=== PATIENT | female | born 1950 | race Hispanic/Latino ===

== ENCOUNTER 2020-03-05 23:53 | Emergency (ER) | payer MEDICARE, OTHER ==
[~2020-03-05] VITALS: Ht 160 cm; Wt 65.8 kg
[2020-03-06] MEDS ORDERED: HYDROCODONE/APAP 5MG-325MG TAB PO ONE (00:15)
[2020-03-06] MEDS ORDERED: ULTRAM50 MG PO (00:23)
[2020-03-06] MEDS ORDERED: HYDROCODONE/APAP 5MG-325MG TAB ONE (00:30)
== END 2020-03-06 00:37 | disposition home or self-care (01) ==
LOC: FSED 03-06 00:13
DX: M25.531 Pain in right wrist (principal); G56.01 Carpal tunnel syndrome, right upper limb
CPT/HCPCS: 99282

== ENCOUNTER 2021-01-15 01:43 | Emergency (ER) | payer MEDICARE ==
[~2021-01-15] VITALS: Ht 162.6 cm; Wt 72.6 kg
[~2021-01-15 01:43] MED LIST: ULTRAM50 MG PO
[2021-01-15] MEDS ORDERED: HYDROCODONE/APAP 5MG-325MG TAB PO ONE (02:00)
[2021-01-15] MEDS ORDERED: CYCLOBENZAPRINE HCL 10 MG TAB PO ONE (02:00)
[2021-01-15] MEDS ORDERED: CYCLOBENZAPRINE HCL 10 MG TAB ONE (02:12)
[2021-01-15] MEDS ORDERED: HYDROCODONE/APAP 5MG-325MG TAB ONE (02:13)
[2021-01-15] MEDS ORDERED: PREDNISONE20 MG PO (02:28)
[2021-01-15 03:25] VITALS: BP 160/54
== END 2021-01-15 03:25 | disposition home or self-care (01) ==
LOC: FSED 01:50
DX: M54.16 Radiculopathy, lumbar region (principal); I10 Essential (primary) hypertension; E11.9 Type 2 diabetes mellitus without complications; Z88.8 Allergy status to other drugs, medicaments and biological substances
CPT/HCPCS: 72100; 99283

== ENCOUNTER → 2021-03-11 | Outpatient (CLI) | payer MEDICARE ==
[~2021-03-11] MED LIST changes: +PREDNISONE20 MG PO
== END ==
LOC: RAD 13:52
PROVIDERS: ATTEND Family Medicine
DX: M25.561 Pain in right knee (principal); M17.11 Unilateral primary osteoarthritis, right knee

== ENCOUNTER → 2021-07-23 | Outpatient (CLI) | payer MEDICARE | LOC: RAD 15:58 | PROVIDERS: ATTEND Family Medicine | DX: M25.511 Pain in right shoulder (principal) ==

== ENCOUNTER 2023-01-15 09:59 | Outpatient (RCR) | payer MEDICARE | END 2023-01-20 | LOC: PT 09:59 | PROVIDERS: ATTEND Physician Assistant | DX: M17.0 Bilateral primary osteoarthritis of knee (principal) ==

== ENCOUNTER 2023-05-31 15:27 | Emergency (ER) | payer MEDICARE ==
[~2023-05-31] VITALS: Ht 162.6 cm; Wt 72.6 kg
[2023-05-31 15:37] VITALS: O2SAT 100
[2023-05-31] MEDS ORDERED: PAXLOVID 300-11 EAC1 PO (16:29)
== END 2023-05-31 16:39 | disposition home or self-care (01) ==
LOC: FSED 15:37
DX: R05.9 Cough, unspecified (principal); U07.1 COVID-19; I10 Essential (primary) hypertension; E11.9 Type 2 diabetes mellitus without complications; E78.00 Pure hypercholesterolemia, unspecified
CPT/HCPCS: 99283

== ENCOUNTER 2024-02-11 12:09 | Emergency (ER) | payer MEDICARE ==
[~2024-02-11] VITALS: Ht 152.4 cm; Wt 72.7 kg
[~2024-02-11 12:09] MED LIST changes: +PAXLOVID 300-11 EAC1 PO
[2024-02-11] MEDS ORDERED: METFORMIN HCL500 M2 PO (12:29)
[2024-02-11] MEDS ORDERED: AMLODIPINE BESY10 MG PO (12:29)
[2024-02-11] MEDS ORDERED: LISINOPRIL5 MG PO (12:29)
[2024-02-11] MEDS ORDERED: ROSUVASTATIN CA20 MG (12:29)
[2024-02-11] MEDS: ACETAMINOPHEN 325 MG TAB PO ONE (13:31)
[2024-02-11] MEDS ORDERED: LIDOCAINE1 EACH TOP (14:58)
[2024-02-11 15:17] VITALS: PULSE 74; RESP 16; TEMP 97.1; O2SAT 98
== END 2024-02-11 15:17 | disposition home or self-care (01) ==
LOC: FSED 12:15
DX: M79.605 Pain in left leg (principal); S86.812A Strain of other muscle(s) and tendon(s) at lower leg level, left leg, initial encounter; M76.812 Anterior tibial syndrome, left leg; M19.09 Primary osteoarthritis, other specified site; E11.42 Type 2 diabetes mellitus with diabetic polyneuropathy; I10 Essential (primary) hypertension; E78.5 Hyperlipidemia, unspecified
CPT/HCPCS: 99283

== ENCOUNTER 2024-03-29 11:27 | Emergency (ER) | payer MEDICARE ==
[~2024-03-29] VITALS: Ht 162.6 cm; Wt 72.6 kg
[~2024-03-29 11:27] MED LIST changes: +AMLODIPINE BESY10 MG PO; +LIDOCAINE1 EACH TOP; +LISINOPRIL5 MG PO; +METFORMIN HCL500 M2 PO; +ROSUVASTATIN CA20 MG
[2024-03-29 11:30] VITALS: PULSE 67; RESP 15; TEMP 98.2; O2SAT 98
[2024-03-29 11:59] LABS: BASOPHILS % 0.3 % (0.0-1.0); EOSINOPHILS # (AUTO) 0.3 (0.0-0.4); EOSINOPHILS % 2.2 % (0.0-6.0); HEMATOCRIT 41.5 % (34.2-44.1); HEMOGLOBIN 13.1 g/dL (12.0-16.0); LYMPHOCYTES # (AUTO) 2.7 (1.0-3.2); LYMPHOCYTES % 21.4 % (18.0-39.1); MEAN CORPUSCULAR HEMOGLOBIN 27.8 pg (28-32); MEAN CORPUSCULAR HGB CONC 31.6 g/dL (31-35); MEAN CORPUSCULAR VOLUME 87.9 fL (81-99); MONOCYTES # (AUTO) 0.9 (0.2-0.8); NEUTROPHILS # (AUTO) 8.7 (2.1-6.9); NEUTROPHILS % 68.7 % (38.7-80.0); PLATELET COUNT 202 x10e3/uL (140-360); RED BLOOD COUNT 4.72 x10e6/uL (3.6-5.1); RED CELL DISTRIBUTION WIDTH 14.3 % (11.7-14.4); WHITE BLOOD COUNT 12.69 x10e3/uL (4.8-10.8)
[2024-03-29 12:22] LABS: ALBUMIN 3.5 g/dL (3.5-5.0); ANION GAP 13.4 mmol/L (8-16); BILIRUBIN,TOTAL 0.4 mg/dL (0.2-1.2); CALCIUM 9.7 mg/dL (8.4-10.2); CLARITY,URINE SL CLOUDY (CLEAR); COLOR,URINE YELLOW (YELLOW); CREATININE, SERUM 0.78 mg/dL (0.57-1.11); GLUCOSE, URINE NEGATIVE (NEGATIVE); KETONES,URINE NEGATIVE (NEGATIVE); LEUKOCYTE ESTERASE ,URINE TRACE (NEGATIVE); NITRITE,URINE NEGATIVE (NEGATIVE); PH,URINE 6 (5 - 7); POTASSIUM 4.4 mmol/L (3.5-5.1); PROTEIN,URINE DIPSTICK TRACE (NEGATIVE); TOTAL PROTEIN 6.9 g/dL (6.5-8.1)
[2024-03-29 12:23] LABS: BILIRUBIN,URINE NEGATIVE (NEGATIVE); URINE UROBILINOGEN 0.2 mg/dL (0.2 - 1)
[2024-03-29 12:45] LABS: BACTERIA,URINE MODERATE /HPF; EPITHELIAL CELLS,URINE MODERATE /LPF; RBC,URINE 0-5 /HPF (0-5); WBC,URINE (MAN) 0-5 /HPF (0-5)
== END 2024-03-29 13:59 | disposition home or self-care (01) ==
LOC: ER 11:34
DX: R10.31 Right lower quadrant pain (principal); E11.65 Type 2 diabetes mellitus with hyperglycemia; I10 Essential (primary) hypertension; E78.5 Hyperlipidemia, unspecified; G62.9 Polyneuropathy, unspecified; M19.09 Primary osteoarthritis, other specified site
CPT/HCPCS: 36415; 74176; 80053; 81001; 85025; 99283; 99284

== ENCOUNTER → 2024-07-20 | Outpatient (RCR) | payer MEDICARE | LOC: PT 07-18 09:40 | PROVIDERS: ATTEND Physical Medicine & Rehabilitation | DX: M16.11 Unilateral primary osteoarthritis, right hip (principal) ==

== ENCOUNTER → 2024-09-21 | Outpatient (REF) | payer MEDICARE | LOC: RAD 14:13 | PROVIDERS: ATTEND Family Medicine | DX: Z01.810 Encounter for preprocedural cardiovascular examination (principal) | CPT/HCPCS: 71046 ==

== ENCOUNTER 2024-10-11 05:22 | Observation (INO) | payer MEDICARE, OTHER ==
[~2024-10-11 05:22] MED LIST changes: +CYMBALTA20 MG PO; +FLONASE ALLERG9.9 ML INH; +GABAPENTIN300 MG PO; +JARDIANCE25 MG PO; +LEVOCETIRIZINE D5 MG PO; +MELOXICAM7.5 MG PO; +MONTELUKAST SOD10 MG PO; +TIZANIDINE HCL4 MG PO; +TRAZODONE HCL50 MG PO
[2024-10-11] MEDS: GABAPENTIN 300 MG CAP ONE (06:20)
[2024-10-11] MEDS: DEXAMETHASONE 10MG/ML PF INJ ONE (06:20)
[2024-10-11] MEDS: CEFAZOLIN SODIUM 2 GM ONE (06:21)
[2024-10-11] MEDS: LACTATED RINGER'S 1,000 ML ONE (06:22)
[2024-10-11] MEDS ORDERED: BUPIVACAINE 0.5%/EPI 30 ML SDV INJ ONE (06:55)
[2024-10-11] MEDS ORDERED: FENTANYL CITRATE/PF 100MCG/2 ML INJ ONE ×2 (06:55→07:10)
[2024-10-11] MEDS ORDERED: MIDAZOLAM HCL 2 MG/2 ML VIAL ONE (06:55)
[2024-10-11] MEDS ORDERED: LIDOCAINE HCL 2% LOCAL INJ 5 ML SDV VIAL INJ ONE (07:10)
[2024-10-11] MEDS ORDERED: PROPOFOL IV EMULSION 10 MG/ML 20 ML VIAL ONE (07:10)
[2024-10-11] MEDS ORDERED: SEVOFLURANE INHAL SOLN 250 ML PEN BTL ONE (07:10)
[2024-10-11] MEDS ORDERED: DIPHENHYDRAMINE HCL INJ 50 MG/ML VIAL ONE (07:42)
[2024-10-11] MEDS ORDERED: FAMOTIDINE 20 MG/2 ML VIAL IV ONE (07:42)
[2024-10-11] MEDS ORDERED: ONDANSETRON HCL INJ 2MG/ML 2ML 2 MG/ML VIAL ONE (07:42)
[2024-10-11] MEDS ORDERED: ACETAMINOPHEN 1000 MG/100 ML 100 ML IV ONE (07:44)
[2024-10-11] MEDS ORDERED: DEXMEDETOMIDINE HCL 0 ML ONE (07:57)
[2024-10-11] MEDS ORDERED: ROPIVACAINE/EPI/CLONIDINE/KET 50 ML SYRINGE INJ ONE (08:00)
[2024-10-11] MEDS ORDERED: DIPHENHYDRAMINE HCL INJ 50 MG/ML VIAL IV PRN (08:45)
[2024-10-11] MEDS ORDERED: ONDANSETRON HCL INJ 2MG/ML 2ML 2 MG/ML VIAL IV PRN (08:45)
[2024-10-11] MEDS: HYDROCODONE/APAP 7.5MG-325MG 1 EA TAB PO PRN (09:35)
[2024-10-11 15:00] VITALS: BP 113/85; PULSE 75; RESP 18; TEMP 97.6; O2SAT 99
[2024-10-11] MEDS: CELECOXIB 100 MG CAP PO SCH (17:22)
[2024-10-11] MEDS: ASPIRIN 325 MG TAB PO SCH (17:22)
[2024-10-11] MEDS: SODIUM CHLORIDE 0.9% 1000ML 1,000 ML IV SCH (17:24)
[2024-10-11 17:29] VITALS: BP 113/85; PULSE 75; RESP 18; TEMP 97.6; O2SAT 99
[2024-10-11] MEDS: CELECOXIB 200 MG CAP ONE (17:31)
[2024-10-11] MEDS: HYDROCODONE/APAP 7.5MG-325MG 1 EA TAB ONE (17:31)
[2024-10-11] MEDS ORDERED: INSULIN LISPRO 100 UNIT/1 ML 3ML VIAL SQ SCH (17:55)
[2024-10-11] MEDS ORDERED: DEXTROSE 50% SYRINGE 50 ML IV PRN ×2 (18:00)
[2024-10-11] MEDS: INSULIN LISPRO 100 UNIT/1 ML 3ML VIAL SQ SCH (18:06)
[2024-10-11 20:00] VITALS: BP 114/67; PULSE 78; RESP 16; TEMP 97.9; O2SAT 99
[2024-10-12 08:30] VITALS: BP 110/57; PULSE 60; RESP 16; TEMP 98.2; O2SAT 99
[2024-10-12 08:41] VITALS: BP 110/57; PULSE 60; RESP 16; TEMP 98.2; O2SAT 100
[2024-10-12] MEDS ORDERED: ACETAMINOPHEN 1000 MG/100 ML IV PRN (08:45)
[2024-10-12 11:36] VITALS: BP 140/61; PULSE 79; RESP 16; TEMP 97.8; O2SAT 98
[2024-10-12 15:46] VITALS: BP 134/58; PULSE 74; RESP 20; TEMP 98.6; O2SAT 99
[2024-10-12 20:00] VITALS: BP 159/79; PULSE 80; RESP 18; TEMP 98.6; O2SAT 96
[2024-10-12] MEDS: HYDROCODONE/APAP 5MG-325MG TAB PO PRN (21:21)
[2024-10-13] VITALS: BP 151/59; PULSE 60; RESP 20; TEMP 98.4; O2SAT 100
[2024-10-13 04:00] VITALS: BP_SYST 138; BP_SYST 151; BP_DIAS 71; BP_DIAS 85; PULSE 70; PULSE 72; RESP 20; TEMP 98; O2SAT 100
[2024-10-13] MEDS: DOCUSATE SODIUM 100 MG CAP PO PRN (08:42)
[2024-10-13] MEDS: MONTELUKAST SODIUM 10 MG TAB PO SCH (08:43)
[2024-10-13] MEDS: DULOXETINE HCL 20 MG DELAYED RELEASE PO SCH (08:43)
[2024-10-13] MEDS ORDERED: METFORMIN HCL 500 MG TAB CR PO SCH (09:00)
[2024-10-13 09:35] LABS: EST GLOMERULAR FILTRATION RATE 82.0 ML/MIN (>=60)
[2024-10-13 12:06] VITALS: BP 159/67; PULSE 76; RESP 20; TEMP 98.4; O2SAT 98
[2024-10-13] MEDS: GABAPENTIN 300 MG CAP PO SCH (12:41)
[2024-10-13] MEDS ORDERED: AMLODIPINE BESYLATE 10 MG TAB PO SCH (21:00)
[2024-10-13] MEDS ORDERED: CRESTOR 10MG PO SCH (21:00)
[2024-10-13] MEDS ORDERED: TRAZODONE HCL 50 MG TAB PO SCH (21:00)
== END 2024-10-13 13:25 | disposition home health service (06) ==
LOC: OR 05:22 → MED/SURG 16:42
PROVIDERS: ADMIT Specialist; ATTEND Specialist
DX: M17.12 Unilateral primary osteoarthritis, left knee (principal); D64.9 Anemia, unspecified; E11.8 Type 2 diabetes mellitus with unspecified complications; Z79.84 Long term (current) use of oral hypoglycemic drugs; I10 Essential (primary) hypertension; E78.5 Hyperlipidemia, unspecified; Z01.812 Encounter for preprocedural laboratory examination; Z01.818 Encounter for other preprocedural examination
CPT/HCPCS: 27447; 36415 ×3; 71046; 73560; 80053; 82948 ×3; 85014 ×2; 85018 ×2; 86850; 86900; 97110 ×2; 97116 ×2; 97162; 97530 ×3; C1713 ×2; C1776 ×3; G0378 ×3; J0131; J0690 ×2; J1200; J1308; J2003; J2250; J2405; J2704; J3010; J7030 ×2; J7121